=== PATIENT | male | born 1995 | race Hispanic/Latino ===

== ENCOUNTER 2018-07-10 16:13 | Inpatient (IN) | payer SELFPAY ==
[2018-07-10 18:11] LABS: BASO # 0.1 K/uL (0.0-0.2); EOS # 0.1 K/uL (0.0-0.7); EOS % 1.4 % (0.0-4.0); HEMOGLOBIN 14.6 g/dL (12.0-18.0); LYMPH % 26.9 % (20.0-40.0); MEAN CELL VOLUME 80.8 fL (80.0-94.0); MEAN CORPUSCULAR HEMOGLOBIN 27.2 pg (27.0-31.0); MEAN CORPUSCULAR HGB CONC 33.7 g/dL (33.0-37.0); MEAN PLATELET VOLUME 8.5 fL (7.2-11.7); MONO # 0.6 K/uL (0.0-0.8); MONO % 8.7 % (0.0-10.0); NEUT # 4.6 K/uL (1.8-7.0); NRBC % 0.1 % (0.0-2.0); RBC 5.36 Mil/uL (4.40-5.90); RED CELL DISTRIBUTION WIDTH 13.6 % (11.5-14.5); WHITE BLOOD COUNT 7.4 K/uL (4.8-10.8)
--- NOTE | 2018-07-10 18:15 | C.PDOC ---
History Of Present Illness 22 y/o male brought to the ED by EMS for reports of hallucinations. Per uncle at bedside, family believes patient has been having auditory hallucinations and suicidal thoughts for the past few months. When asked why he is here, patient states "someone says I tried to jump out of a car." When asked if this is true, patient states "I do not know." He appears calm and cooperative in the ED but is not answering questions appropriately. Patient is a poor historian. Time Seen by Provider: 07/10/18 17:16 Chief Complaint (Nursing): Psychiatric Evaluation History Per: Patient History/Exam Limitations: other (bizarre behavior) Onset/Duration Of Symptoms: Days Current Symptoms Are (Timing): Still Present Associated Symptoms: Suicidal Thoughts Past Medical History Reviewed: Historical Data, Nursing Documentation, Vital Signs Vital Signs: Last Vital Signs Temp 98.3 F 07/10/18 16:20 Pulse 77 07/10/18 16:20 Resp 18 07/10/18 16:20 BP 142/78 07/10/18 16:20 Pulse Ox 96 07/10/18 16:20 Family History: States: Unknown Family Hx - Social History Hx Tobacco Use: No Hx Alcohol Use: No Hx Substance Use: No - Immunization History Hx Tetanus Toxoid Vaccination: No Hx Influenza Vaccination: No Hx Pneumococcal Vaccination: No Review Of Systems Review Of Systems: ROS cannot be obtained secondary to pt's inabilty to answer questions. Physical Exam - Physical Exam Appears: Non-toxic, No Acute Distress, Other (Appears calm, comfortable) Skin: Warm, Dry Head: Atraumatic, Normacephalic Eye(s): bilateral: Normal Inspection, PERRL, EOMI Oral Mucosa: Moist Neck: Normal ROM, Supple Chest: Symmetrical Cardiovascular: Rhythm Regular, No Murmur Respiratory: Normal Breath Sounds, No Rales, No Rhonchi, No Wheezing Gastrointestinal/Abdominal: Soft, No Tenderness, No Distention Extremity: Bilateral: Atraumatic, Normal Color And Temperature Neurological/Psych: Oriented x3, Other (Responsive to questions, not answering directly) ED Course And Treatment - Laboratory Results Result Diagrams: 07/10/18 18:03 07/10/18 18:03 O2 Sat by Pulse Oximetry: 96 (RA) Pulse Ox Interpretation: Normal Medical Decision Making Medical Decision Making: Plan: Labs ordered for medical clearance. Patient placed on 1:1 obs, awaiting crisis eval. 19:07 Pt is medically cleared. Disposition Counseled Patient/Family Regarding: Studies Performed, Diagnosis - Disposition Disposition Time: 19:08 Condition: STABLE Forms: [facility] (Eritrean) - Clinical Impression Clinical Impression: Polysubstance abuse - Scribe Statement The provider has reviewed the documentation as recorded by the Scribe [place] Provider Attestation: All medical record entries made by the Diannaibe were at my direction and personally dictated by me. I have reviewed the chart and agree that the record accurately reflects my personal performance of the history, physical exam, medical decision making, and the department course for this patient. I have also personally directed, reviewed, and agree with the discharge instructions and disposition. Physician Patient Turnover Patient Signed Over To: Inocencia Smart (pending crisis eval)
[2018-07-10 18:20] LABS: ALB/GLOB RATIO 1.7 (1.0-2.1); ALT/SGPT 20 U/L (21-72); AST/SGOT 24 U/L (17-59); BLOOD UREA NITROGEN 11 mg/dL (9-20); CALCIUM 9.3 mg/dl (8.6-10.4); GFR NON-AFRICAN AMERICAN > 60
[2018-07-10 18:45] LABS: SQUAMOUS EPITHIAL < 1 /hpf (0-5); URINE BILIRUBIN NEGATIVE (NEGATIVE); URINE BLOOD NEGATIVE (NEGATIVE); URINE CLARITY Hazy (Clear); URINE COLOR Amber (YELLOW); URINE GLUCOSE (UA) NORMAL (Normal); URINE LEUKOCYTE ESTERASE NEG Leu/uL (Negative); URINE PROTEIN 1+ mg/dL (NEGATIVE)
[2018-07-10 19:04] LABS: BARBITURATES, UR NEGATIVE (NEGATIVE); BENZODIAZEPINES, UR NEGATIVE (NEGATIVE); OPIATES, UR POSITIVE (NEGATIVE); PHENCYCLIDINE, UR NEGATIVE (NEGATIVE)
[2018-07-11 00:48] VITALS: O2SAT 98
--- NOTE | 2018-07-11 01:52 | PCM.BM ---
Treatment Plan Problems - Problems identified on initial assessmt Self Harm Date Initiated: 07/11/18 Time Initiated: :15 Assessment reference: NA Status: Monitor Suicidal Ideation Date Initiated: 07/11/18 Time Initiated: :15 Assessment reference: NA Status: Monitor Low Motivation to Change Date Initiated: 07/11/18 Time Initiated: :15 Assessment reference: NA Status: Active Treatment assets and liabiliti Patient Assests: cooperative, ADL independent, good support system Patient Liabilities: substance abuse (Hx of Heroin and Cocaine use), imparied memory (Does not recall his suicide attempt) - Milieu Protocol Maintain good personal hygiene: daily Encourage regular showers, daily Remind patient to perform daily oral care, every shift Assist patient to perform ADL's Conduct patient checks and document Observation sheet: Q15 minutes Maintain personal safety: every shift Educate patient to report safety concerns to staff, every shift Monitor environment for contraband/sharps Medication safety: Monitor for expected outcome, potential side effects: every shift, Assess barriers to learning: every shift, Assess readiness for medication education: every shift
[2018-07-11] MEDS ORDERED: Aluminum Hydroxide/Magnesium Hydroxide Susp (30 mL) PO PRN (10:22)
--- NOTE | 2018-07-11 10:24 | PCM.PSYCH ---
Initial Psychiatric Evaluation - Initial Psychiatric Evaluation Type of Admission: Voluntary Legal Status: Capacity Chief Complaint (in patient's own words): I was feeling depressed and suicidal History of Present Illness and Precipitating Events: Patient is a 22 years old male, who is currently unemployed and lives with his parents, was escorted to the hospital because of increasingly depressed mood and suicidal ideation. Patient denies any past history of any inpatient psychiatric hospitalizations and he denies any history of follow-up with any psychiatrist. Patient reports of abusing increasing amount of heroin and cocaine on a daily basis. As per him he is injecting and sniffing 5-30 bags of heroin daily along with some cocaine. Patient reports that yesterday he abused more than 20 bags of heroin, became increasingly depressed and developed suicidal ideation so he was escorted to the [facility] for stabilization. He reports depressed mood, at times feelings of hopelessness and helplessness, poor sleep and poor appetite. He also reports irritability and agitation. He reports withdrawal symptoms from heroin including nausea, vomiting, diarrhea, cramps, joint pains, anxiety and sweating. However he denies any auditory or visual hallucinations or any paranoia. Past medical history None reported Current Medications: Active Medications Generic Name Dose Route Start Last Admin Trade Name Freq PRN Reason Stop Dose Admin Influenza Virus Vaccine 60 mcg 07/14/18 10:00 Flucelvax Quad [id number] Syr IM 07/14/18 10:01 .ONCE ONE Pneumococcal Polyvalent Vaccine 0.5 ml 07/14/18 10:00 Pneumovax 23 Vaccine IM 07/14/18 10:01 .ONCE ONE Trazodone HCl 50 mg 07/11/18 01:44 Desyrel PO HS PRN Restlessness Past Psychiatric History - Past Psychiatric History Previous Treatment History: None Pertinent Medical Hx (Current Medical&Sleep Prob, Allergies): Allergies Allergy/AdvReac Type Severity Reaction Status Date / Time No Known Allergies Allergy Verified 07/10/18 16:28 No Known Home Med 07/10/18 Review of Systems - Review of Systems All systems: reviewed and no additional remarkable complaints except - Psychiatric Psychiatric: Anxiety, Depression, Irritability, Mood Swings, Suicidal Ideation Mental Status Examination - Personal Presentation Personal Presentation: Looks stated age - Affect Affect: Broad - Motor Activity Motor Activity: Calm - Reliability in Providing Information Reliability in Providing Information: Fair - Speech Speech: Organized - Mood Mood: Depressed, Anxious - Formal Thought Process Formal Thought Process: No Impairment - Obsessions/Compulsions Obsessions: No Compulsions: No - Cognitive Functions Orientation: Person, Place, Situation, Time Sensorium: Alert Attention/Concentration: Attentive Abstract Thinking: [place] Estimate of Intelligence: Below average Judgement: Imparied, as evidence by: Poor judgement, Imparied, as evidence by: Lack of insight into illness - Risk Risk: Suicidal, Withdrawal, Diminished functioning - Strength & Assets Inventory Strength & Assets Inventory: Family support DSM 5 DX - DSM 5 DSM 5 Diagnosis: Bipolar disorder mixed severe without psychotic features Opioid use disorder severe Opioid withdrawal Cocaine use disorder severe - Recommended/Plan of Treatment Treatment Recommendations and Plan of Treatment: Bipolar disorder mixed severe without psychotic features Opioid use disorder severe Opioid withdrawal Cocaine use disorder severe CBT Supportive therapy and group therapy Psychoeducation and milieu therapy Methadone taper Hydroxyzine for anxiety Trazodone for insomnia Neurontin for augmentation As needed medications
--- NOTE | 2018-07-12 16:16 | PCM.PYCHPN ---
Psychiatric Progress Note - Psychiatric Progress Note Patient seen today, length of contact: 15 min Patient Chief Complaint: I was feeling depressed and suicidal Problems Identified/Issues Discussed: Patient was seen and evaluated, chart reviewed and discussed the staff. Patient reports withdrawal symptoms from heroin including nausea, vomiting or diarrhea, shakes and anxiety. He remained isolative and withdrawn and confined to his room. He reports irritability and agitation and at times depressed mood. However he denies any auditory hallucinations or any paranoia. History medication but denies any side effects Supportive therapy was given Collateral information: Met with the [facility]. As per him, patient has some legal charges, as he was caught with possession. He wants the patient to go to the inpatient or outpatient rehab after discharge. Medication Change: Yes Medical Record Reviewed: Yes Mental Status Examination - Cognitive Function Orientation: Person, Place, Situation, Time Memory: Intact Attention: WNL Concentration: Poor Association: WNL Fund of Knowledge: Poor - Mood Mood: Depressed, Anxious - Affect Affect: Broad - Speech Speech: Soft - Formal Thought Process Formal Thought Process: No Impairment - Suicidal Ideation Suicidal Ideation: No - Homicidal Ideation Homicidal Ideation: No Goal/Treatment Plan - Goal/Treatment Plan Need for Continued Stay: Severe depression anxiety, Severe functional impairment Progress Toward Problem(s) and Goals/Treatment Plan: Bipolar disorder mixed severe without psychotic features Opioid use disorder severe Opioid withdrawal Cocaine use disorder severe CBT Supportive therapy and group therapy Psychoeducation and milieu therapy Methadone taper Hydroxyzine for anxiety Trazodone for insomnia Neurontin for augmentation As needed medications
[2018-07-13 06:47] VITALS: RESP 16; TEMP 98.1
[2018-07-13 15:52] VITALS: BP 112/75; PULSE 101
[2018-07-14] MEDS ORDERED: Influenza Vaccine 60 mcg/0.5 mL SYR (4YR UP) IM ONE (10:00)
[2018-07-14] MEDS ORDERED: Pneumococcal 23-Valent Vaccine IM ONE (10:00)
== END 2018-07-14 10:30 | disposition home or self-care (01) | DRG 885 ==
LOC: C.ER 16:13 → C.5E 07-11 00:27
PROVIDERS: ADMIT Psychiatry & Neurology Psychiatry; ATTEND Psychiatry & Neurology Psychiatry
PROC: GZ3ZZZZ Medication Management (ICD-10-PCS; principal; 2018-07-11)
PROC: HZ81ZZZ Medication Management for Substance Abuse Treatment, Methadone Maintenance (ICD-10-PCS; 2018-07-11)
PROC: HZ2ZZZZ Detoxification Services for Substance Abuse Treatment (ICD-10-PCS; 2018-07-11)
PROC: GZHZZZZ Group Psychotherapy (ICD-10-PCS; 2018-07-11)
PROC: GZ56ZZZ Individual Psychotherapy, Supportive (ICD-10-PCS; 2018-07-11)
DX: F31.63 Bipolar disorder, current episode mixed, severe, without psychotic features (principal); F11.23 Opioid dependence with withdrawal; F14.20 Cocaine dependence, uncomplicated; R45.851 Suicidal ideations; G47.00 Insomnia, unspecified; F41.9 Anxiety disorder, unspecified